=== PATIENT | male | born 1965 | race Caucasian/White ===

== ENCOUNTER 2019-03-28 01:52 | Outpatient (CLI) | payer MEDICAID, SELFPAY ==
--- NOTE | 2019-03-28 08:02 | DI.MRI_ITS ---
EXAM: MR UPPER JOINT RT WO CLINICAL HISTORY: RT SHOULDER PAIN, M25.511, PT MADE SHOULDER PAIN WORSE. TECHNIQUE: Multiplanar multisequence MRI was performed. COMPARISON: No exams were available for comparison FINDINGS: MR of the shoulder was performed according to the usual protocol. Are hypertrophic degenerative macias ges at the acromioclavicular joint with minimal associated deformity of the superior contour of supra spinatus myotendinous junction region. There is associated abnormal signal of the adjoining bones of the acromioclavicular joint with small quantity of intra-articular fluid. Tiny glenohumeral joint e ffusion is also noted. There are some areas of abnormal signal presumably representing subchondral c ysts of the greater tuberosity of the humerus adjacent to subscapularis/supraspinatus attachment. Glenoid labrum is grossly intact by noncontrast criteria. Mildly abnormal signal noted in infraspina tus and supraspinatus tendons, no discrete tear identified. Subscapularis appears essentially intact . Rotator interval structures grossly unremarkable. Biceps anchor and biceps tendon appear normal. IMPRESSION: Supraspinatus and infraspinatus tendinosis. Slight supra spinatus impingement by AC joint hypertroph y. No discrete rotator cuff tear.
== END 2019-03-28 02:12 ==
PROVIDERS: PCP Specialist/Technologist Athletic Trainer; Visit Provider Specialist/Technologist Athletic Trainer
DX: M25.511 Pain in right shoulder (principal); M75.81 Other shoulder lesions, right shoulder; M75.41 Impingement syndrome of right shoulder; M25.411 Effusion, right shoulder
CPT/HCPCS: 73221

== ENCOUNTER 2020-03-16 11:49 | Outpatient (REF) | payer MEDICAID, SELFPAY ==
[2020-03-16 16:04] LABS: ALT 37 U/L (16-63); AST 22 U/L (15-37); Albumin 4.2 g/dL (3.4-5.0); Alkaline Phosphatase 76 U/L (46-116); Anion Gap 9.4 mmol/L (3-11); BUN 15 mg/dL (7-18); Bilirubin, Total 0.8 mg/dL (0.2-1.0); CO2 27.6 mmol/L (21.0-32.0); CREATININE 1.16 mg/dL (0.70-1.30); Calcium 9.3 mg/dL (8.5-10.1); Calculated LDL 112 mg/dL (<100); Chloride 103 mmol/L (98-107); Cholesterol 194 mg/dL (<200); Glucose 103 mg/dL (74-106); HDL Cholesterol 28 mg/dL (40-60); Potassium 4.7 mmol/L (3.5-5.1); Sodium 140 mmol/L (136-145); Total Protein 7.2 g/dL (6.4-8.2); Triglyceride 271 mg/dL (<150)
[2020-03-16 16:07] LABS: Hemoglobin A1C 5.2 % (<5.7)
== END 2020-03-16 12:09 ==
LOC: NCHCN 11:49
PROVIDERS: PCP Specialist/Technologist Athletic Trainer; Visit Provider Nurse Practitioner Family
DX: E78.5 Hyperlipidemia, unspecified (principal); R73.9 Hyperglycemia, unspecified
CPT/HCPCS: 80053; 80061; 83036

== ENCOUNTER 2022-09-14 09:13 | Outpatient (REF) | payer MEDICAID, SELFPAY ==
[2022-09-14 16:04] LABS: Abs Immature Grans 0.04 10^3/uL (0.0-0.06); Absolute Eosinophil Count 0.44 10^3/uL (0.0-0.7); Absolute Lymphocyte Count 3.03 10^3/uL (1.2-3.4); Absolute Neutrophil Count 9.19 10^3/uL (1.2-6.7); Basophils % 0.7; Eosinophils % 3.2; HGB 15.3 g/dL (13.5-17.5); Immature Grans % 0.3; Lymphocytes % 22.2; MCH 29.9 pg (27.0-33.0); MCHC 35.6 % (32.0-36.0); MCV 84 fL (80-95); Monocytes % 6.2; Neutrophils % 67.4; Platelet Count 247 10^3/uL (130-400); RBC 5.11 10^6/uL (4.36-5.78); RDW 13.1 % (11.8-14.1); RDW-SD 40.3 fL; WBC 13.63 10^3/uL (4.4-10.8)
[2022-09-14 16:06] LABS: Absolute Monocyte Count 0.85 10^3/uL (0.1-0.8)
[2022-09-14 16:29] LABS: Hemoglobin A1C 5.2 % (<5.7)
[2022-09-14 16:33] LABS: ALT 32 U/L (16-63); AST 20 U/L (15-37); Albumin 3.8 g/dL (3.4-5.0); Alkaline Phosphatase 72 U/L (46-116); Anion Gap 10.8 mmol/L (3-11); BUN 14 mg/dL (7-18); Bilirubin, Total 0.7 mg/dL (0.2-1.0); CO2 25.2 mmol/L (21.0-32.0); CREATININE 1.2 mg/dL (0.70-1.30); Calcium 8.9 mg/dL (8.5-10.1); Calculated LDL 111 mg/dL (<100); Chloride 105 mmol/L (98-107); Cholesterol 208 mg/dL (<200); Estimated GFR 69.66 (mL/min/1.73m2); Glucose 108 mg/dL (74-106); HDL Cholesterol 28 mg/dL (40-60); Magnesium 2.2 mg/dL (1.8-2.4); Sodium 141 mmol/L (136-145); Total Protein 6.5 g/dL (6.4-8.2); Triglyceride 347 mg/dL (<150)
[2022-09-14 16:47] LABS: Vitamin D 25 Total 26.9 ng/mL (30-100)
== END 2022-09-14 09:14 | disposition home or self-care (01) ==
LOC: NCHCN 09:13
PROVIDERS: PCP Specialist/Technologist Athletic Trainer; Visit Provider Nurse Practitioner Family
DX: E78.5 Hyperlipidemia, unspecified (principal); R73.9 Hyperglycemia, unspecified; E55.9 Vitamin D deficiency, unspecified
CPT/HCPCS: 80053; 80061; 82306; 83036; 83735; 85025

== ENCOUNTER 2023-01-29 10:50 | Outpatient (REF) | payer MEDICAID, SELFPAY ==
[2023-01-29 15:26] LABS: Calculated LDL 117 mg/dL (<100); Cholesterol 210 mg/dL (<200); HDL Cholesterol 35 mg/dL (40-60); Triglyceride 292 mg/dL (<150)
== END 2023-01-29 10:51 | disposition home or self-care (01) ==
LOC: NCHCN 10:50
PROVIDERS: PCP Specialist/Technologist Athletic Trainer; Visit Provider Nurse Practitioner Family
DX: E78.5 Hyperlipidemia, unspecified (principal)
CPT/HCPCS: 80061

== ENCOUNTER 2023-05-24 11:16 | Outpatient (REF) | payer MEDICAID, SELFPAY ==
[2023-05-28 17:13] LABS: Anaplasma phagocytophilum Negative (Negative); B. miyamotoi PCR Negative (Negative); Babesia divergens/MO-1 Negative (Negative); Babesia duncani Negative (Negative); Babesia microti Negative (Negative); Ehrlichia chaffeensis Negative (Negative); Ehrlichia ewingii/canis Negative (Negative); Ehrlichia muris eauclairensis Negative (Negative)
== END 2023-05-24 11:17 | disposition home or self-care (01) ==
LOC: NCHCN 11:16
PROVIDERS: PCP Specialist/Technologist Athletic Trainer; Visit Provider Nurse Practitioner Family
DX: Z00.00 Encounter for general adult medical examination without abnormal findings (principal)
CPT/HCPCS: 87798; 86618